=== PATIENT | male | born 1950 | race Hispanic/Latino ===

== ENCOUNTER 2019-07-15 16:54 | Inpatient (IN) | payer MEDICARE ==
[~2019-07-15] VITALS: Ht 165.1 cm; Wt 70.3 kg
[2019-07-15] MEDS ORDERED: FUROSEMIDE 10 MG/ML 4ML VIAL ONE (17:23)
[2019-07-15] MEDS ORDERED: ALBUMIN (HUMAN) 25% 100 ML IV ONE (17:24)
[2019-07-15] MEDS ORDERED: CEFTRIAXONE SODIUM 2 GM VIAL ONE (17:25)
[2019-07-15] MEDS ORDERED: SODIUM CHLORIDE 0.9% 100 ML IV ONE (17:26)
[2019-07-15] MEDS ORDERED: IPRATROPIUM/ALBUTEROL SULFATE 3 ML SOLUTION IH ONE (17:27)
[2019-07-15 17:47] LABS: BASOPHILS % (AUTO) 0.2 % (0.0-5.0); HEMATOCRIT 34.4 % (42-54); LYMPHOCYTES % (AUTO) 11.7 % (21.0-51.0); MEAN CORPUSCULAR HEMOGLOBIN 34.9 pg (27.0-33.0); MEAN CORPUSCULAR HGB CONC 35.3 g/dL (32.0-36.0); MEAN CORPUSCULAR VOLUME 98.8 fL (79-99); MONOCYTES % (AUTO) 10.2 % (3.0-13.0); NEUTROPHILS % (AUTO) 77.9 % (40.0-77.0); PLATELET COUNT (AUTO) 307 K/uL (130-400); RED BLOOD CELL COUNT(AUTO) 3.48 MIL/uL (4.50-6.20); RED CELL DISTRIBUTION WIDTH 13.6 % (11.0-15.5); WHITE BLOOD COUNT (AUTO) 14.9 K/uL (4.8-10.8)
[2019-07-15 17:52] LABS: ABG BASE EXCESS -2.9 mmol/L (-2.0-3.0); ABG HCO3 19.2 mmol/L (21.0-28.0); ABG OXYGEN SATURATION 93.4 % (95.0-99.0); ABG PCO2 26 mmHg (35-48)
[2019-07-15 18:01] LABS: INR 1.13 (0.85-1.15); PARTIAL THROMBOPLASTIN TIME 28.4 SEC (26.3-35.5); PROTHROMBIN TIME 11.8 SEC (9.6-11.6)
[2019-07-15 18:08] LABS: ALBUMIN 3.1 g/dL (3.5-5.0); BILIRUBIN,TOTAL 0.5 mg/dL (0.2-1.0); POTASSIUM 4.9 mmol/L (3.5-5.1); TOTAL PROTEIN, SERUM 6.7 g/dL (6.0-8.3)
[2019-07-15 18:21] LABS: B-TYPE NATRIURETIC PEPTIDE 1690 pg/mL (0-100)
[2019-07-15 20:07] LABS: APPEARANCE,URINE Clear (CLEAR); BILIRUBIN,URINE Negative (NEGATIVE); COLOR,URINE Yellow (YELLOW); GLUCOSE, URINE (UA) >=1000 mg/dL (NEGATIVE); KETONES,URINE Negative (NEGATIVE); LEUKOCYTE ESTERASE ,URINE Negative (NEGATIVE); NITRATE,URINE Negative (NEGATIVE); OCCULT BLOOD,URINE Negative (NEGATIVE); PH,URINE 6.5 (5.0-8.0); PROTEIN,URINE POS 2+ mg/dL (NEGATIVE)
[2019-07-15 20:44] LABS: BACTERIA,URINE None Seen /HPF (None Seen); MUCUS,URINE Few LPF (None Seen); RBC,URINE 0-1 /HPF (0-1); SQUAMOUS EPITHELIAL CELL,UR 0-2 /HPF (0-2); WBC,URINE 0-1 /HPF (0-1)
[2019-07-15 21:30] VITALS: BP 166/98
--- NOTE | 2019-07-15 21:30 | NUR ---
ADMISSION PATIENT TRANSFERRED FROM ED VIA STRETCHER. NO COMPLAINTS OF PAIN. NO SHORTNESS OF BREATH. NO SIGNS OF DISTRESS. PATIENT WAS TRANSFERRED TO BED WITH NO PROBLEMS. PATIENT WAS MADE COMFORTABLE IN BED. ALERT AND ORIENTED X3. FAMILY AT BEDSIDE. CALL LIGHT AND BEDSIDE TABLE WITHIN REACH. NO QUESTIONS, CONCERNS, OR NEEDS AT THIS TIME.
[2019-07-15 23:21] VITALS: BP 128/78
[2019-07-15] MEDS ORDERED: METF-446 PO ×2 (23:31)
[2019-07-15] MEDS ORDERED: LISI-613 PO (23:31)
[2019-07-15] MEDS ORDERED: CLON2TAB11 PO ×2 (23:31)
[2019-07-15] MEDS ORDERED: LEVO100 PO ×2 (23:31)
[2019-07-15] MEDS ORDERED: ATOR40TA69 PO ×2 (23:31)
[2019-07-16] MEDS ORDERED: HYDRALAZINE HCL 20 MG/ML VIAL IV PRN
[2019-07-16] MEDS ORDERED: CEFTRIAXONE SODIUM 1 GM IV SCH
--- NOTE | 2019-07-16 | NUR ---
ASSESSMENT PATIENT IS RESTING IN BED. NO COMPLAINTS OF PAIN. NO SIGNS OF DISTRESS. NO SHORTNESS OF BREATH. IS AT BEDSIDE. CALL LIGHT AND BEDSIDE TABLE WITHIN REACH. VOICES NO NEEDS AT THIS TIME.
[2019-07-16] MEDS: IPRATROPIUM/ALBUTEROL SULFATE 3 ML SOLUTION IH SCH ×5 (02:04→23:27)
[2019-07-16 03:05] VITALS: BP 145/85
--- NOTE | 2019-07-16 04:00 | NUR ---
ASSESSMENT PATIENT IS RESTING IN BED. REMAINS AT BEDSIDE. NO COMPLAINTS OF PAIN AT THIS TIME. NO SIGNS OF DISTRESS. NO SHORTNESS OF BREATH. PATIENTS CALL LIGHT AND BEDSIDE TABLE ARE WITHIN REACH. NO QUESTIONS, CONCERNS, OR NEEDS AT THIS TIME.
[2019-07-16 04:18] LABS: BASOPHILS % (AUTO) 0.1 % (0.0-5.0); EOSINOPHILS % (AUTO) 0.1 % (0.0-8.0); LYMPHOCYTES % (AUTO) 6.6 % (21.0-51.0); MEAN CORPUSCULAR HEMOGLOBIN 35.8 pg (27.0-33.0); MEAN CORPUSCULAR HGB CONC 35.5 g/dL (32.0-36.0); MEAN CORPUSCULAR VOLUME 100.9 fL (79-99); MONOCYTES % (AUTO) 5.9 % (3.0-13.0); NEUTROPHILS % (AUTO) 87.3 % (40.0-77.0); NUCLEATED RED BLOOD CELLS 0.1 % (0.0-0.19); PLATELET COUNT (AUTO) 272 K/uL (130-400); RED BLOOD CELL COUNT(AUTO) 3.07 MIL/uL (4.50-6.20); RED CELL DISTRIBUTION WIDTH 13.7 % (11.0-15.5); WHITE BLOOD COUNT (AUTO) 11.8 K/uL (4.8-10.8)
[2019-07-16 04:41] LABS: ALBUMIN 2.9 g/dL (3.5-5.0); BILIRUBIN,TOTAL 0.5 mg/dL (0.2-1.0); CREATININE 1.1 mg/dL (0.5-1.5); POTASSIUM 4.3 mmol/L (3.5-5.1); TOTAL PROTEIN, SERUM 6.1 g/dL (6.0-8.3)
[2019-07-16] MEDS: INSULIN HUMULIN R 100 UNIT/ML 3ML SQ SCH ×4 (07:30→21:55)
[2019-07-16] MEDS ORDERED: METHYLPREDNISOLONE SOD SUCC 125MG/2ML VIAL IV SCH ×3 (08:00→14:00)
[2019-07-16 08:41] VITALS: BP 144/94
[2019-07-16] MEDS ORDERED: FAMOTIDINE 20MG TAB 20 MG TAB PO SCH (09:00)
[2019-07-16] MEDS ORDERED: FAMOTIDINE/PF 20 MG/2 ML VIAL IV SCH (09:00)
[2019-07-16] MEDS ORDERED: FUROSEMIDE 40 MG TABLET PO SCH (09:00)
[2019-07-16] MEDS: ENOXAPARIN SODIUM 30 MG/0.3 ML SQ SCH (10:48)
[2019-07-16] MEDS: FAMOTIDINE 20MG TAB 20 MG TAB PO SCH ×2 (10:48→21:50)
[2019-07-16] MEDS: LEVOFLOXACIN 750 MG/D5W 150 ML 150 ML IV SCH (11:19)
[2019-07-16 11:47] VITALS: BP 141/96
[2019-07-16] MEDS ORDERED: METHYLPREDNISOLONE SOD SUCC 40MG/ML 1ML IVP SCH (14:00)
[2019-07-16 16:36] VITALS: BP 126/90
--- NOTE | 2019-07-16 17:11 | NUR ---
cm note met with patient and spouse and pt states is independent with adls and self care, no dme. no providers services. has a cane and a walker in place, but never uses it. dcplan is back to home at time of dc. Addendum: 07/16/19 at 1712 by JOSE LUIS FINNEY CM Amended: Links added.
[2019-07-16] MEDS ORDERED: FUROSEMIDE 10 MG/ML 4ML VIAL IV SCH (17:30)
[2019-07-16] MEDS ORDERED: FUROSEMIDE 10 MG/ML 4ML VIAL ONE (17:51)
[2019-07-16] MEDS ORDERED: BUMETANIDE 0.25 MG/ML 10 ML VIAL IV SCH (18:30)
[2019-07-16] MEDS: BUMETANIDE 0.25 MG/ML 10 ML 80 ML IV SCH (19:24)
[2019-07-16 19:45] VITALS: BP 134/75
[2019-07-16 23:37] VITALS: BP 120/77
[2019-07-17 03:26] VITALS: BP 122/67
[2019-07-17 04:07] LABS: HEMATOCRIT 34.4 % (42-54); MEAN CORPUSCULAR HEMOGLOBIN 35.5 pg (27.0-33.0); MEAN CORPUSCULAR HGB CONC 35.9 g/dL (32.0-36.0); PLATELET COUNT (AUTO) 323 K/uL (130-400); RED BLOOD CELL COUNT(AUTO) 3.48 MIL/uL (4.50-6.20); WHITE BLOOD COUNT (AUTO) 14.9 K/uL (4.8-10.8)
[2019-07-17 04:30] LABS: CREATININE 1.2 mg/dL (0.5-1.5); POTASSIUM 3.6 mmol/L (3.5-5.1)
[2019-07-17 04:52] LABS: B-TYPE NATRIURETIC PEPTIDE 897 pg/mL (0-100)
[2019-07-17] MEDS: INSULIN HUMULIN R 100 UNIT/ML 3ML SQ SCH ×4 (06:10→21:32)
[2019-07-17] MEDS: IPRATROPIUM/ALBUTEROL SULFATE 3 ML SOLUTION IH SCH ×4 (06:19→23:31)
[2019-07-17 07:46] VITALS: BP 122/73
[2019-07-17] MEDS ORDERED: PREDNISONE 10 MG TABLET PO SCH (09:00)
[2019-07-17] MEDS: FAMOTIDINE 20MG TAB 20 MG TAB PO SCH ×2 (09:30→21:28)
[2019-07-17] MEDS: SODIUM CHLORIDE 1,000 MG TAB PO SCH ×2 (09:30→21:28)
[2019-07-17] MEDS: ENOXAPARIN SODIUM 30 MG/0.3 ML SQ SCH (09:31)
[2019-07-17] MEDS: LEVOFLOXACIN 750 MG/D5W 150 ML 150 ML IV SCH (09:31)
[2019-07-17] MEDS: BUMETANIDE 0.25 MG/ML 10 ML 80 ML IV SCH (11:17)
[2019-07-17 11:45] VITALS: BP 123/70
[2019-07-17 15:38] VITALS: BP 133/78
[2019-07-17 19:36] VITALS: BP 122/71
[2019-07-17] MEDS ORDERED: POTASSIUM CHLORIDE 20 MEQ ERTAB PO ONE (20:57)
[2019-07-17] MEDS ORDERED: LIDOCAINE HCL-MPF 1% 2ML VIAL IV PRN (21:00)
[2019-07-17] MEDS ORDERED: POTASSIUM CHLORIDE 10% ELIXIR 20 MEQ/15 ML UDCUP PO PRN (21:00)
[2019-07-17] MEDS ORDERED: POTASSIUM CHLORIDE 20MEQ/100ML 100 ML IV PRN (21:00)
[2019-07-17] MEDS: POTASSIUM CHLORIDE 20 MEQ ERTAB PO PRN (21:29)
[2019-07-17] MEDS: INSULIN GLARGINE 100 UNITS/ML 10 ML VIAL SQ SCH (22:19)
[2019-07-17 23:31] VITALS: BP 125/72
[2019-07-18 04:23] VITALS: BP 131/84
[2019-07-18 04:43] LABS: BASOPHILS % (AUTO) 0.1 % (0.0-5.0); EOSINOPHILS % (AUTO) 0.1 % (0.0-8.0); HEMATOCRIT 38.4 % (42-54); LYMPHOCYTES % (AUTO) 9.2 % (21.0-51.0); MEAN CORPUSCULAR HEMOGLOBIN 35.5 pg (27.0-33.0); MEAN CORPUSCULAR HGB CONC 35.2 g/dL (32.0-36.0); MEAN CORPUSCULAR VOLUME 100.8 fL (79-99); MONOCYTES % (AUTO) 10.8 % (3.0-13.0); NEUTROPHILS % (AUTO) 79.8 % (40.0-77.0); PLATELET COUNT (AUTO) 336 K/uL (130-400); RED BLOOD CELL COUNT(AUTO) 3.81 MIL/uL (4.50-6.20); WHITE BLOOD COUNT (AUTO) 16.5 K/uL (4.8-10.8)
[2019-07-18 05:05] LABS: B-TYPE NATRIURETIC PEPTIDE 713 pg/mL (0-100)
[2019-07-18 05:07] LABS: HEMOGLOBIN A1C 7.4 % (4.0-6.0)
[2019-07-18 05:11] LABS: CREATININE 1.7 mg/dL (0.5-1.5); MAGNESIUM 1.7 mg/dL (1.80-2.40); PHOSPHORUS 5.2 mg/dL (2.5-4.9); POTASSIUM 3.7 mmol/L (3.5-5.1); THYROID STIMULATING HORMONE 1.09 uIU/mL (0.36-3.74)
[2019-07-18] MEDS: INSULIN HUMULIN R 100 UNIT/ML 3ML SQ SCH ×4 (05:37→22:16)
[2019-07-18] MEDS ORDERED: LEVOTHYROXINE 100 MCG TABLET ONE (06:15)
[2019-07-18] MEDS ORDERED: MAGNESIUM 2GM PREMIX 50ML 50 ML IV ONE (06:15)
[2019-07-18] MEDS ORDERED: MAGNESIUM 2GM PREMIX 50ML 50 ML IV PRN (06:15)
[2019-07-18] MEDS: LEVOTHYROXINE 100 MCG TABLET PO SCH (06:20)
[2019-07-18] MEDS: POTASSIUM CHLORIDE 20 MEQ ERTAB PO PRN ×2 (06:24→09:44)
[2019-07-18] MEDS: IPRATROPIUM/ALBUTEROL SULFATE 3 ML SOLUTION IH SCH ×4 (06:44→23:30)
[2019-07-18 07:36] VITALS: BP 121/75
--- NOTE | 2019-07-18 08:00 | NUR ---
ASSESSMENT:PENDING 2D-ECHO TODAY.
[2019-07-18] MEDS: BUMETANIDE 1 MG TAB PO SCH ×2 (09:44→20:21)
[2019-07-18] MEDS: FAMOTIDINE 20MG TAB 20 MG TAB PO SCH ×2 (09:44→20:21)
[2019-07-18] MEDS: LEVOFLOXACIN 750 MG/D5W 150 ML 150 ML IV SCH (09:45)
[2019-07-18] MEDS: ENOXAPARIN SODIUM 30 MG/0.3 ML SQ SCH (09:46)
[2019-07-18] MEDS: METFORMIN HCL 500 MG TABLET PO SCH ×2 (09:56→17:18)
[2019-07-18] MEDS: BUDESONIDE 0.5 MG/2 ML INH IH SCH ×2 (10:56→18:37)
[2019-07-18 11:36] VITALS: BP 126/73
[2019-07-18 15:31] VITALS: BP 143/74
[2019-07-18 19:05] VITALS: BP 115/65
[2019-07-18] MEDS: INSULIN GLARGINE 100 UNITS/ML 10 ML VIAL SQ SCH (20:32)
[2019-07-18] MEDS ORDERED: ATORVASTATIN CALCIUM 40 MG TABLET PO SCH (21:00)
[2019-07-18 23:31] VITALS: BP 130/80
[2019-07-19 03:46] VITALS: BP 130/76
--- NOTE | 2019-07-19 04:10 | NUR ---
ASSESSMENT PATIENT ALERT AND ORIENTED. RESTING IN BED. VISITOR AT BEDSIDE. GONZALEZ CATHETER IN PLACED DRAINING CLEAR YELLOW URINE. PATIENT ON PO BUMEX. EDUCATED PATIENT AND SPOUSE ON WATER RESTRICTION AND DRINKS CONTAINING A LOT OF SUGAR SUCH POWERADE HE HAS AT BEDSIDE. PATIENT SAYS HE IS GOING HOME TOMORROW ANYWAY. NON COMPLIANT WITH 300 ML WATER RESTRICTION.
[2019-07-19] MEDS: IPRATROPIUM/ALBUTEROL SULFATE 3 ML SOLUTION IH SCH ×2 (06:33→11:03)
[2019-07-19] MEDS: LEVOTHYROXINE 100 MCG TABLET PO SCH (06:35)
[2019-07-19] MEDS: INSULIN HUMULIN R 100 UNIT/ML 3ML SQ SCH ×3 (06:36→16:17)
[2019-07-19 06:44] LABS: ALBUMIN 2.9 g/dL (3.5-5.0); BILIRUBIN,TOTAL 0.6 mg/dL (0.2-1.0); CREATININE 1.8 mg/dL (0.5-1.5); POTASSIUM 4.5 mmol/L (3.5-5.1); TOTAL PROTEIN, SERUM 6.7 g/dL (6.0-8.3)
[2019-07-19 07:21] VITALS: BP 130/73
[2019-07-19] MEDS: FAMOTIDINE 20MG TAB 20 MG TAB PO SCH (08:34)
[2019-07-19] MEDS: METFORMIN HCL 500 MG TABLET PO SCH ×2 (08:34→16:43)
[2019-07-19] MEDS: BUMETANIDE 1 MG TAB PO SCH (08:34)
[2019-07-19] MEDS: LEVOFLOXACIN 750 MG/D5W 150 ML 150 ML IV SCH (08:35)
[2019-07-19] MEDS: ENOXAPARIN SODIUM 30 MG/0.3 ML SQ SCH (08:35)
[2019-07-19 11:43] VITALS: BP 141/78
[2019-07-19 15:18] VITALS: BP 138/84
[2019-07-19] MEDS ORDERED: GLIP5TAB11 PO ×2 (16:28)
[2019-07-19] MEDS ORDERED: BUME1TAB6 PO ×2 (16:28)
[2019-07-19] MEDS ORDERED: LEVO500T2 PO ×2 (16:28)
[2019-07-19] MEDS ORDERED: METO-408 PO ×2 (16:28)
[2019-07-19] MEDS ORDERED: LISI2.5T2 PO ×2 (16:28)
[2019-07-19] MEDS ORDERED: BUDESONIDE 0.5 MG/2 ML INH IH SCH (18:00)
--- NOTE | 2019-07-19 18:20 | NUR ---
DISCHARGE VERBAL & WRITTEN DISCHARGE INSTRUCTIONS REVIEWED & GIVEN TO PT& SPOUSE. QUESTIONS ENCOURAGED & CLARIFIED. PROPER CARE & MGT OF HEART FAILURE REVIEWED. FLUID RESTRICTION & WT MONITORING REINFORCED. NEW PRESCRIBED MEDICATIONS REVIEWED. PT INFORMED PRESCRIPTION TRANSMITTED TO PHARMACY IN FILE. TELE GIACOMO REMOVED EARLIER. PT & SPOUSE TO GATHER PERSONA BELONGINGS. WILL NOTIFY STAFF WHEN DAUGHTER ARRIVES TO TAKE PT HOME.
[2019-08-04] MEDS ORDERED: ATOR40TA71 PO (15:45)
[2019-08-04] MEDS ORDERED: ALBU8.5H8 IH (15:45)
[2019-08-04] MEDS ORDERED: DOXY100C40 PO (15:45)
[2019-08-04] MEDS ORDERED: SYMBICORT IH (15:45)
== END 2019-07-19 19:40 | disposition home or self-care (01) | DRG 193 ==
LOC: EDH 16:54 → EDHIP 20:51 → 2DH 21:38
PROVIDERS: ADMIT Internal Medicine; ATTEND Internal Medicine
DX: R09.1 Pleurisy (principal); J96.01 Acute respiratory failure with hypoxia; E44.1 Mild protein-calorie malnutrition; J98.11 Atelectasis; E87.3 Alkalosis; E87.1 Hypo-osmolality and hyponatremia; J91.8 Pleural effusion in other conditions classified elsewhere; Z99.81 Dependence on supplemental oxygen; J44.9 Chronic obstructive pulmonary disease, unspecified; I50.9 Heart failure, unspecified; I11.0 Hypertensive heart disease with heart failure; E11.9 Type 2 diabetes mellitus without complications; D72.829 Elevated white blood cell count, unspecified; Z68.25 Body mass index [BMI] 25.0-25.9, adult; Z83.3 Family history of diabetes mellitus; Z82.49 Family history of ischemic heart disease and other diseases of the circulatory system; F17.210 Nicotine dependence, cigarettes, uncomplicated
CPT/HCPCS: 36415; 36600; 71045; 71046; 71250; 78582; 80048; 80053; 81001; 82435; 82550; 82803; 82947; 82948; 83036; 83605; 83735; 83880; 84100; 84132; 84295; 84443; 84484; 85018; 85025; 85027; 85610; 85730; 87040; 93005; 93306; 94640; 94664; 94760; 99291; A4344; A9540; A9558; G0378; J0696; J1650; J1815; J1940; J1956; J3475; J3490; J7512; P9046

== ENCOUNTER → 2019-07-15 | Outpatient (CLI) | payer MEDICARE ==
[~2019-07-15] MED LIST: ATOR40TA69 PO; BUME1TAB6 PO; CLON2TAB11 PO; GLIP5TAB11 PO; LEVO100 PO; LEVO500T2 PO; LISI-613 PO; LISI2.5T2 PO; METF-446 PO; METO-408 PO
== END | disposition home or self-care (01) ==
LOC: RAH 14:30
PROVIDERS: ATTEND Family Medicine
DX: J90 Pleural effusion, not elsewhere classified (principal); J98.11 Atelectasis; I51.7 Cardiomegaly; I25.10 Atherosclerotic heart disease of native coronary artery without angina pectoris; J44.9 Chronic obstructive pulmonary disease, unspecified; M47.815 Spondylosis without myelopathy or radiculopathy, thoracolumbar region
CPT/HCPCS: 71250

== ENCOUNTER 2019-08-09 08:14 | Day surgery (SDC) | payer MEDICARE ==
[2019-08-04 15:19] LABS: BASOPHILS % (AUTO) 0.3 % (0.0-5.0); EOSINOPHILS % (AUTO) 1.4 % (0.0-8.0); HEMATOCRIT 39.4 % (42-54); LYMPHOCYTES % (AUTO) 28.5 % (21.0-51.0); MEAN CORPUSCULAR HEMOGLOBIN 34.4 pg (27.0-33.0); MEAN CORPUSCULAR HGB CONC 34.4 g/dL (32.0-36.0); MEAN CORPUSCULAR VOLUME 99.9 fL (79-99); MONOCYTES % (AUTO) 6.9 % (3.0-13.0); NEUTROPHILS % (AUTO) 62.9 % (40.0-77.0); PLATELET COUNT (AUTO) 346 K/uL (130-400); RED BLOOD CELL COUNT(AUTO) 3.94 MIL/uL (4.50-6.20); RED CELL DISTRIBUTION WIDTH 13.8 % (11.0-15.5); WHITE BLOOD COUNT (AUTO) 11.8 K/uL (4.8-10.8)
[2019-08-04 15:25] LABS: CREATININE 1.7 mg/dL (0.5-1.5); POTASSIUM 5.3 mmol/L (3.5-5.1)
[2019-08-04 15:28] LABS: INR 1.02 (0.85-1.15); PARTIAL THROMBOPLASTIN TIME 27.5 SEC (26.3-35.5); PROTHROMBIN TIME 10.7 SEC (9.6-11.6)
[2019-08-04 15:40] VITALS: BP 114/66
--- NOTE | 2019-08-08 11:49 | NUR ---
LABS LABS FAXED TO DR. TREVINO PER [facility] REQUEST. AWAITING FOR FURTHER ORDERS
--- NOTE | 2019-08-08 11:57 | NUR ---
LABS DR. TREVINO CALLED STATED HE REVIEWED ABNORMAL LABS FAXED , NO FURTHER ORDERS GIVEN. OK TO PROCEED WITH SCHEDULED PROCEDURE
[~2019-08-09] VITALS: Ht 170.2 cm; Wt 70.6 kg
[2019-08-09] VITALS (9 sets, daily range): BP systolic 122–152; BP diastolic 64–94
[~2019-08-09 08:14] MED LIST changes: +ALBU8.5H8 IH; -ATOR40TA69 PO; +ATOR40TA71 PO; -CLON2TAB11 PO; +DOXY100C40 PO; -LEVO500T2 PO; -LISI-613 PO; +SODIUM CHLORIDE 0.9% 500ML 500 ML IV SCH; +SYMBICORT IH
[2019-08-09] MEDS ORDERED: SODIUM CHLORIDE 0.9% 1000ML 1,000 ML IV ONE (08:35)
[2019-08-09] MEDS ORDERED: HEPARIN SODIUM 1000UNIT/ML 10ML VIAL ONE (09:14)
[2019-08-09] MEDS ORDERED: BIVALIRUDIN 250 MG/VIAL IV ONE (09:14)
[2019-08-09] MEDS ORDERED: NITROGLYCERIN 5 MG/ML 10 ML VIAL IV ONE (09:15)
[2019-08-09] MEDS ORDERED: LIDOCAINE HCL 2% 20ML ONE (09:15)
[2019-08-09] MEDS ORDERED: IOHEXOL 350 MG/ML 100ML INFUS..BTL IV ONE (09:15)
[2019-08-09] MEDS ORDERED: FENTANYL CITRATE PF 50 MCG/1 ML 2ML VIAL ONE (09:15)
[2019-08-09] MEDS ORDERED: MIDAZOLAM HCL 1 MG/ML 2ML VIAL ONE (09:15)
[2019-08-09] MEDS ORDERED: NICARDIPINE HCL 25 MG/10 ML ML IV ONE (09:15)
--- NOTE | 2019-08-09 14:23 | NUR ---
KAROLYN ANTONIO RN TO D/C PATIENT WITH A FOLLOW UP ON Thursday AT 9:[address] TREVINO WILL SEE HER AT HIS OFFICE.
--- NOTE | 2019-08-09 14:30 | NUR ---
PT LEFT VIA WHEEL CHAIR IN PVT CAR WITH FAMILY, PT. DRESSING IS DRY AND INTACT NO HEMATOMA, NO BLEEDING, DP PULSES INTACT BILATERALLY .D/C INSTRUCTIONS GIVEN TO DAUGHTER ALONG WITH F/U APPTS FOR URIEL AND DR. PUGA.
== END 2019-08-09 14:48 | disposition home or self-care (01) ==
LOC: DAH 08:14
PROVIDERS: ATTEND Internal Medicine Cardiovascular Disease
DX: I25.10 Atherosclerotic heart disease of native coronary artery without angina pectoris (principal); I13.0 Hypertensive heart and chronic kidney disease with heart failure and stage 1 through stage 4 chronic kidney disease, or unspecified chronic kidney disease; E11.22 Type 2 diabetes mellitus with diabetic chronic kidney disease; N18.3 Chronic kidney disease, stage 3 (moderate); I50.22 Chronic systolic (congestive) heart failure; E78.5 Hyperlipidemia, unspecified; E03.9 Hypothyroidism, unspecified; Z79.84 Long term (current) use of oral hypoglycemic drugs; Z79.899 Other long term (current) drug therapy; Z94.0 Kidney transplant status; Z72.89 Other problems related to lifestyle; Z87.891 Personal history of nicotine dependence; Z82.49 Family history of ischemic heart disease and other diseases of the circulatory system; Z83.3 Family history of diabetes mellitus; Z82.3 Family history of stroke
CPT/HCPCS: 36415; 71045; 80048; 82948 ×2; 85025; 85610; 85730; 93005; 93458; A4215; A4216; A4221; A4222; A4223 ×3; A4606; A4663; C1760; C1894 ×2; J1644; J2250; J3010; J3490 ×3; J7030; Q9965; Q9967; 99156; 99157; J0583